=== PATIENT | male | born 1945 | race Caucasian/White ===

== ENCOUNTER → 2016-06-12 | Outpatient (REF) | payer MEDICARE, OTHER ==
[~2016-06-12] MED LIST: AMLO10TA4 PO; AMOX875T2 PO; METF500T4 PO; METO200T32 PO; NF-LISIN40 PO; POTA10TA10 PO; SMV20T PO
== END ==
LOC: LAB 11:59
PROVIDERS: ATTEND Family Medicine
DX: E11.9 Type 2 diabetes mellitus without complications (principal)
CPT/HCPCS: 83036

== ENCOUNTER 2016-07-05 12:10 | Emergency (ER) | payer MEDICARE, OTHER ==
[~2016-07-05] VITALS: Ht 188 cm; Wt 138.8 kg
[2016-07-05 12:13] VITALS: BP 158/76
--- OUTSIDE RECORDS SUMMARY | 2016-07-05 12:13 | XMS REPORT | Continuity of Care Document ---
Author Author [facility] Organization [facility] Address Unknown Phone Unavailable Support Name Relationship Address Phone NESSA FERMIN MD Caregiver [address] [place] [address] SHANEKA BLANC Next Of Kin [address] [place] [address] Insurance Providers Payer Name Policy Number Subscriber Name Relationship Medicare A And B [id number] Charly Blanc 16 Self / Same As Patient [facility] [id number] Charly Blanc 16 Self / Same As Patient Chief Complaint and Reason for Visit Chief Complaint Dental Complaint Reason for Visit Toothache Problems Medical Problems Problem Onset Date Status Toothache Unknown Active Medications Medication Dose Route Sig Days/Qty Instructions Order Date Discontinued Date Status Amlodipine Besylate 10 Mg ORAL DAILY 08/07/14 Active Simvastatin 20 Mg ORAL DAILY 08/07/14 Active Metformin Hcl (Glucophage) 500 Mg ORAL TWICE A DAY 08/07/14 Active Lisinopril (Zestril) 40 Mg ORAL DAILY 08/07/14 Active Metoprolol Succinate 200 Mg ORAL DAILY 08/07/14 Active Potassium Chloride 10 Meq ORAL TWICE A DAY 08/07/14 Active Amoxicillin 875 Mg ORAL TWICE A DAY 20 Qty 08/07/14 Active Social History No social history. Hospital Discharge Instructions No hospital discharge instructions. Plan of Care Discharge Date 08/07/14 1:10pm Disposition 01 HOME OR SELF-CARE Condition at Discharge Stable Instructions/Education Provided Lymphadenopathy (ED) Prescriptions See Medications Section Functional Status No functional status results. Allergies, Adverse Reactions, Alerts No known allergies. Immunizations No immunization records. Vital Signs Acute Vital Signs Vital Response Date/Time Temperature (Fahrenheit) 98.1 Pulse 65 bpm Respirations 20 Height 6 ft 2 in Weight 300 lb Body Mass Index 38.0 kg/m^2 Results Test Source Date Result Interp. Ref. Range Comments Alanine Aminotransferase (ALT/SGPT) July 07, 2014 5:00pm 27 U/L L 30- 65 Albumin July 07, 2014 5:00pm 4.0 g/dL N 3.4-5.0 Albumin/Globulin Ratio July 07, 2014 5:00pm 1.290 N 1.1-1.8 Alkaline Phosphatase July 07, 2014 5:00pm 106 U/L N 38-126 Anion Gap July 07, 2014 5:00pm 12.7 MEQ/L N 3-15 Aspartate Amino Transf (AST/SGOT) July 07, 2014 5:00pm 18 U/L N 15-37 BUN/Creatinine Ratio July 07, 2014 5:00pm 15 N 10-20 Basophils # (Auto) July 07, 2014 5:00pm 0.1 10^3uL Basophils (%) (Auto) July 07, 2014 5:00pm 1 % N 0-2 Blood Urea Nitrogen July 07, 2014 5:00pm 15 mg/dL N 7-18 Calcium Level July 07, 2014 5:00pm 9.8 mg/dL N 8.8-10.8 Calcium/Ionized Calcium Ratio July 07, 2014 5:00pm 4.3 mg/dL N 3.8-4.6 Calculated Osmolality July 07, 2014 5:00pm 281 mosm/L N 280-300 Carbon Dioxide Level July 07, 2014 5:00pm 35 mmol/L H 22-29 Chloride Level July 07, 2014 5:00pm 100 mmol/L N 98-108 Cholesterol Level July 07, 2014 5:00pm 157 mg/dL N 50-200 Cholesterol/HDL Ratio July 07, 2014 5:00pm 4.1 N 0.0-5.0 Creatinine July 07, 2014 5:00pm 1.01 mg/dL N 0.8-1.5 Eosinophils # (Auto) July 07, 2014 5:00pm 0.2 10^3uL Eosinophils (%) (Auto) July 07, 2014 5:00pm 3 % N 0-4 Estimat Glomerular Filtration Rate July 07, 2014 5:00pm 88.1 Estimated GFR (Non- July 07, 2014 5:00pm 72.8 Glucose Level July 07, 2014 5:00pm 128 mg/dL H 70-110 HDL Cholesterol July 07, 2014 5:00pm 38 mg/dL L 40-60 Hematocrit July 07, 2014 5:00pm 46.20 % N 39.00-50.00 Hemoglobin July 07, 2014 5:00pm 15.5 g/dL N 13.5-17.0 Hemoglobin A1c July 07, 2014 5:00pm 5.9 % N 4.0-6.0 LDL Cholesterol, Calculated July 07, 2014 5:00pm 78 mg/dL N 50-130 Lymphocytes # (Auto) July 07, 2014 5:00pm 2.3 X10^3 Lymphocytes (%) (Auto) July 07, 2014 5:00pm 26 % N 20-46 Mean Corpuscular Hemoglobin July 07, 2014 5:00pm 31.5 PG N 26.0-34.0 Mean Corpuscular Hemoglobin Concent July 07, 2014 5:00pm 33.5 g/dL N 31.0-37.0 Mean Corpuscular Volume July 07, 2014 5:00pm 94 FL N 80-100 Mean Platelet Volume July 07, 2014 5:00pm 10.9 FL H 6.0-9.5 Monocytes # (Auto) July 07, 2014 5:00pm 0.9 X10^3 Monocytes (%) (Auto) July 07, 2014 5:00pm 11 % N 3-11 Neutrophils # (Auto) July 07, 2014 5:00pm 5.2 X10^3 Neutrophils (%) (Auto) July 07, 2014 5:00pm 60 % N 51-67 Platelet Count July 07, 2014 5:00pm 231 10^3uL N 150-450 Potassium Level July 07, 2014 5:00pm 3.5 mmol/L N 3.5-5.1 Prostate Specific Antigen January 03, 2013 7:34am 1.2 ng/mL 0.0-4.5 AUA PSA Best Practice Guidelines: Age-Adjusted PSA Values by Ethnic Group Age Range Asians - Caucasians Americans 40-49 0-2.0 0-2.0 0-2.5 50-59 0-3.0 0-4.0 0-3.5 60-69 0-4.0 0-4.5 0-4.5 70-79 0-5.0 0-5.5 0-6.5 Red Blood Count July 07, 2014 5:00pm 4.92 10^6uL N 4.50-5.50 Red Cell Distribution Width July 07, 2014 5:00pm 12.8 % N 11.8-15.6 Sodium Level July 07, 2014 5:00pm 144 mmol/L N 135-150 Thyroid Stimulating Hormone (TSH) July 07, 2014 5:00pm 2.05 uIU/mL DN 0.46-4.68 Total Bilirubin July 07, 2014 5:00pm 0.4 mg/dL DN 0.1-1.0 Total Protein July 07, 2014 5:00pm 7.1 g/dL N 6.4-8.5 Triglycerides Level July 07, 2014 5:00pm 203 mg/dL H 10-150 Urine Bacteria December 13, 2011 8:50am None seen /HPF Urine Bilirubin December 13, 2011 8:50am Negative Negative Urine Clarity December 13, 2011 8:50am Clear Urine Color December 13, 2011 8:50am Yellow Urine Glucose (UA) December 13, 2011 8:50am Negative Negative Urine Ketones December 13, 2011 8:50am Negative Negative Urine Leukocyte Esterase December 13, 2011 8:50am Negative Negative Urine Nitrite December 13, 2011 8:50am Negative Negative Urine Protein December 13, 2011 8:50am Negative Negative Urine RBC December 13, 2011 8:50am 0-2 /HPF Urine RBC (Auto) December 13, 2011 8:50am Trace-intact H Negative Urine Specific [place] December 13, 2011 8:50am 1.015 1.005-1.030 Urine Squamous Epithelial Cells December 13, 2011 8:50am 0-2 /LPF Urine Urobilinogen December 13, 2011 8:50am 0.2 mg/dL 0.2-1.0 Urine WBC December 13, 2011 8:50am None seen /HPF Urine pH December 13, 2011 8:50am 7.5 5.0 - 8.0 VLDL Cholesterol May 24, 2013 10:01am 26 mg/dL 0-28 VLDL Cholesterol, Calculated July 07, 2014 5:00pm 41 mg/dL H 4.00- 40.00 White Blood Count July 07, 2014 5:00pm 8.69 10^3uL N 4.0-11.0 Procedures Procedure Status Date Provider(s) completed 07/20/14 Encounters Encounter Location Date/Time Registered Emergency Room [facility] 08/07/14 11:59am Registered Clinic [facility] 07/20/14 2:06pm Recent Diagnosis
--- OUTSIDE RECORDS SUMMARY | 2016-07-05 12:17 | XMS REPORT | Continuity of Care Document ---
Author Author [facility] Organization [facility] Address Unknown Phone Unavailable Support Name Relationship Address Phone NESSA FERMIN MD Caregiver [address] [place] [address] SHANEKA BLANC Next Of Kin [address] [place] [address] Insurance Providers Payer Name Policy Number Subscriber Name Relationship Medicare A And B [id number] Charly Blanc 16 Self / Same As Patient [facility] [id number] Charly Blanc 16 Self / Same As [...] 2011 8:50am Trace-intact H Negative Urine Specific [place] December 13, 2011 8:50am 1.015 1.005-1.030 Urine [...] Encounters Encounter Location Date/Time Registered Emergency Room [facility] 08/07/14 11:59am Registered Clinic [facility] 07/20/14 2:06pm Recent Diagnosis
[2016-07-05] MEDS: ALBUTEROL/IPRATROPIUM 3MG-0.5MG/3ML (DUONEB) NEB VIAL INH ONE (12:54)
[2016-07-05] MEDS ORDERED: LISI1TAB10 PO (13:00)
[2016-07-05] MEDS ORDERED: POTA20TA15 PO (13:00)
[2016-07-05] MEDS ORDERED: METF850T2 PO (13:00)
[2016-07-05] MEDS ORDERED: GLIM4TAB PO (13:09)
[2016-07-05] MEDS ORDERED: ASP81TEC PO (13:09)
[2016-07-05] MEDS ORDERED: ADV500-14 INH (13:09)
[2016-07-05] MEDS ORDERED: TAMS0.4C2 PO (13:09)
[2016-07-05] MEDS ORDERED: ALBU2.5V4 INH (13:09)
[2016-07-05] MEDS ORDERED: ALBU8.5H6 INH (13:09)
[2016-07-05] MEDS ORDERED: TIOT18CA INH (13:09)
[2016-07-05] MEDS ORDERED: AC500T PO (13:09)
--- NOTE | 2016-07-05 13:29 | Diagnostic Imaging Report ---
PA and lateral chest. INDICATION: Shortness of breath and cough. Correlation made with prior CT from August 26, 2010. FINDINGS: There are background features of underlying COPD with pulmonary hyperinflation and flattening of the diaphragms. There is no focal alveolar consolidation demonstrated. There is no effusion or evidence of pneumothorax. Patient is status post prior sternotomy. There is enlargement of the cardiac silhouette but no evidence to suggest failure. There are advanced degenerative features within the thoracic spine. IMPRESSION: 1. Background features of COPD without evidence of an acute superimposed cardiopulmonary process. 2. Previous sternotomy with cardiomegaly. There is no current evidence of failure. Dictated by: Dictated on workstation # [id number]
[2016-07-05] MEDS: methylPREDNISolone 125 MG (Solu-MEDROL) VIAL IM STA (13:32)
[2016-07-05] MEDS ORDERED: PRED20TA PO (13:45)
[2016-07-05] MEDS ORDERED: IPRA3AMP11 INH (13:45)
[2016-07-05] MEDS ORDERED: CEPH-331 PO (13:45)
== END 2016-07-05 13:58 | disposition home or self-care (01) ==
LOC: ED 12:13
DX: J44.1 Chronic obstructive pulmonary disease with (acute) exacerbation (principal)
CPT/HCPCS: 71020; 94640; 96372; 99282; J2930; 99283